=== PATIENT | male | born 1995 | race Two or more races ===

== ENCOUNTER 2018-01-03 15:31 | Emergency (ER) | payer MEDICAID ==
[~2018-01-03] VITALS: Ht 185.4 cm; Wt 70.3 kg
[2018-01-03 16:39] LABS: BUN/Creatinine Ratio 15.4; Bilirubin, Total 2.3 mg/dL (0.2-1.0); Calcium 9.9 mg/dL (8.5-10.1); Eosinophils # (auto) 0 uL; Eosinophils % (auto) 0.3 % (0.0-7.0); Lymphocytes # (auto) 1.8 uL; Total Protein 8.4 g/dL (6.4-8.2); White Blood Cell 5.3 10^3/uL (4.4-10.8)
[2018-01-03 16:41] LABS: Neutrophils # (auto) 3.1 uL
[2018-01-03 16:58] LABS: Basophils # (auto) 0.1 uL
[2018-01-03 17:00] LABS: Hematocrit 49.8 % (41.0-53.0); Hemoglobin 17.9 g/dL (13.5-17.5); Lymphocytes % (auto) 33.8 % (10.0-50.0); Mean Corpuscular Hemoglobin 33.1 pg (28.0-32.0); Mean Corpuscular Hgb Conc. 35.9 g/dL (32.0-36.0); Mean Corpuscular Volume 92.2 fL (80.0-100.0); Monocytes # (auto) 0.4 uL; Monocytes % (auto) 7.1 % (0.0-12.0); Neutrophils % (auto) 57.8 % (37.0-80.0); Nucleated Red Blood Cells % 0.5 %; Platelet Count (auto) 205 10^3/uL (140-450)
[2018-01-03 18:09] VITALS: BP 116/69
== END 2018-01-03 18:20 | disposition home or self-care (01) ==
LOC: ER 15:34
DX: F41.9 Anxiety disorder, unspecified (principal); F31.9 Bipolar disorder, unspecified; T14.8XXA Other injury of unspecified body region, initial encounter; F43.10 Post-traumatic stress disorder, unspecified; R51 Headache
CPT/HCPCS: 36415; 70450; 80053; 85025